=== PATIENT | male | born 1950 | race African-American/Black ===

== ENCOUNTER 2018-03-22 08:39 | Emergency (ER) | payer OTHER ==
[~2018-03-22] VITALS: Ht 152.4 cm; Wt 72.6 kg
[~2018-03-22 08:39] MED LIST: LISINOPRIL10 MG PO; NORCO 5-325 TA1 EACH PO; NOVOLIN 70100 UNIT/5
[2018-03-22] MEDS ORDERED: RESTORIL15 M1 PO (08:51)
[2018-03-22] MEDS ORDERED: IRON325 PO (08:53)
[2018-03-22] MEDS ORDERED: HYDROCODONE-AP1 EAC6 PO (09:01)
[2018-03-22] MEDS ORDERED: MOBIC15 MG PO (09:01)
[2018-03-22] MEDS ORDERED: VALIUM5 MG PO (09:01)
== END 2018-03-22 09:40 | disposition home or self-care (01) ==
LOC: ER 08:39
DX: S16.1XXA Strain of muscle, fascia and tendon at neck level, initial encounter (principal); E11.9 Type 2 diabetes mellitus without complications; Z79.4 Long term (current) use of insulin; X58.XXXA Exposure to other specified factors, initial encounter; Y92.89 Other specified places as the place of occurrence of the external cause; Y93.89 Activity, other specified; Y99.8 Other external cause status